=== PATIENT | female | born 1955 | race Caucasian/White ===

== ENCOUNTER 2018-04-19 21:17 | Emergency (ER) | payer BC, SELFPAY ==
[2018-04-19 21:24] VITALS: BP 130/73; PULSE 84; RESP 16; TEMP 36.7; O2SAT 98; BMI 23.6
--- NOTE | 2018-04-19 21:36 | ED_ITS ---
HPI - Female Genitourinary General Chief complaint: Urogenital-Female Stated complaint: LEFT SIDE PAIN KIDNEY STONES Time Seen by Provider: 04/19/18 21:36 Source: patient Mode of arrival: ambulatory Limitations: no limitations History of Present Illness HPI Narrative: 62-year-old female with a history of renal stones. She states that her 1st kidney stone 9 years ago required lithotripsy. Since then she states she has passed multiple kidney stones. She states that over the past couple days she has passed multiple stones. She has always had pain on her left side. Today she woke up with left-sided pain consistent with her prior stones. Did have nausea and vomiting this morning took some pain medication this morning but then threw it up. No fevers. Bowel changes. No vaginal bleeding Related Data Home Medications Medication Instructions Recorded Confirmed progesterone micronized 200 mg PO BID #0 02/14/17 04/19/18 acyclovir 1 tab PO DAILY 04/19/18 04/19/18 bupropion HCl 1 tab PO DAILY 04/19/18 04/19/18 estradiol 1 patch TRANSDERMAL WEEKLY 04/19/18 04/19/18 omeprazole 1 tab PO DAILY 04/19/18 04/19/18 progesterone micronized 1 tab PO DAILY 04/19/18 04/19/18 Allergies Allergy/AdvReac Type Severity Reaction Status Date / Time ondansetron [From Zofran] Allergy Severe Vomiting Verified 04/19/18 21:49 Review of Systems Constitutional Denies fever(s) Cardiovascular Denies chest pain and Denies dyspnea Respiratory Denies dyspnea Gastrointestinal Gastrointestinal: Denies abdominal pain, Denies change in stool character, Reports nausea and Reports vomiting Genitourinary Reports urinary frequency Integumentary/Breasts Denies lesions and Denies rash Hematologic/Lymphatic Denies easy bleeding and Denies easy bruising PFSH Medical History Kidney stone (Acute) Surgical History H/O lithotripsy (Acute) Social History Smoking Status: Never smoker Exam Initial Vital Signs Initial Vital Signs: Vital Signs Temperature 98.1 F 04/19/18 21:24 Pulse Rate 84 04/19/18 21:24 Respiratory Rate 16 04/19/18 21:24 Blood Pressure 130/73 04/19/18 21:24 Pulse Oximetry 98 04/19/18 21:24 Const General: cooperative, healthy appearing, comfortable, well developed, well groomed and No acute distress Orientation: alert, awake and oriented x3 Resp Effort & Inspection: normal respiratory effort Auscultation: clear to auscultation bilaterally Cardio Rate: regular rate Rhythm: regular rhythm GI Inspection: non-distended Palpation: soft, No firm and No tender Back/Spine/Pelvis Back: No CVA tenderness Skin Lesions: no lesions Rashes: no rashes Neuro General: alert, awake and oriented x3 Extrem General: normal to inspection and capillary refill normal Psych Appearance: grossly normal and well kempt Course Orders Ordered: ED Orders 04/19/18 21:35 Ictotest Urine Stat Urinalysis and Microscopic Stat Urine Culture Stat 04/19/18 22:15 Basic Metabolic Panel Stat Discontinued Medications Lidocaine HCl 5.6 ml/ Sodium (Chloride) 55.6 mls @ 333.6 mls/hr IV NOW ONE Stop: 04/19/18 21:57 Last Infusion: 04/19/18 22:54 Dose: 0 mls/hr Admin: 04/19/18 22:40 Dose: 333.6 mls/hr Sodium Chloride (Normal Saline 0.9%) 1,000 mls @ 1,000 mls/hr IV BOLUS ONE Stop: 04/19/18 22:55 Last Infusion: 04/19/18 23:06 Dose: 0 mls/hr Admin: 04/19/18 22:20 Dose: 1,000 mls/hr Ketorolac Tromethamine (Toradol) 30 mg IV NOW ONE Stop: 04/19/18 21:57 Last Admin: 04/19/18 22:20 Dose: 30 mg Vital Signs - 8 hr 04/19/18 21:24 04/19/18 22:22 Temperature 98.1 F Pulse Rate 84 77 Respiratory Rate 16 16 Blood Pressure 130/73 Blood Pressure [Left Arm] 148/77 H Pulse Oximetry 98 97 MDM - Female Genitourinary Lab Data Attestation: I reviewed the patient's lab results. Result diagrams: 04/19/18 22:15 Lab Results 04/19/18 04/19/18 Range/Units 21:35 22:15 Sodium 141 (137-145) mmol/L Potassium 4.0 (3.4-5.1) mmol/L Chloride 106 (98-107) mmol/L Carbon Dioxide 24 (22-32) mmol/L BUN 19 H (7-17) mg/dL Creatinine 1.00 (0.52-1.04) mg/dL Estimated GFR 56.6 L (>60) mL/min BUN/Creatinine Ratio 19.0 (6-22) Glucose 131 H (80-110) mg/dL Calcium 9.1 (8.4-10.2) mg/dL Urine Color Red Urine Appearance Cloudy Urine pH 5.0 (4.5-8.0) Ur Specific [place] 1.025 (1.000-1.035) Urine Protein 2+ H (Negative) Urine Glucose (UA) Negative (Normal) g/dL Urine Ketones 1+ H (NEGATIVE) Urine Occult Blood 3+ H (Negative) Urine Nitrate Negative (Negative) Urine Bilirubin 1+ H (NEGATIVE) Urine Ictotest Negative (Negative) Urine Urobilinogen 0.2 (0.2) E.U./dL Ur Leukocyte Esterase Trace H (NEGATIVE) Urine RBC >100/hpf H (0-5/HPF) Urine WBC 0-1/hpf (0-5/HPF) Ur Squamous Epith Cells 1-5 /hpf Urine Bacteria Moderate (10-30) H (None) Ur Culture Indicated? Specimen cultured Micro UA Comment Not Reportable MDM Narrative Medical decision making narrative: Patient's creatinine is unremarkable. No signs of infection in the urine. She has history and physical exam that are consistent with stones. She has a prior history of kidney stones. Will hold on a CT scan for now. She reports improvement of her pain after IV lidocaine and Toradol here in the ER. She has pain medication at home. Will send home with prescription for Phenergan. She was given return precautions. She expressed understanding and agreement with plan. Discharge Plan Departure Patient Disposition: Home Clinical Impression: Renal colic on left side Instructions: Kidney Stones -- Adult Activity Restrictions/Additional Instructions: Increase your fluid intake. Call your primary care doctor for a follow-up. Return to the emergency department for any new or worsening symptoms Prescriptions: No Action progesterone micronized 200 MG capsule 200 mg PO BID Qty: 0 RF: 0 bupropion HCl 150 mg tablet extended release 12 hr 1 tab PO DAILY RF: 0 acyclovir 200 mg capsule 1 tab PO DAILY RF: 0 omeprazole 20 mg capsule,delayed release(DR/EC) 1 tab PO DAILY RF: 0 progesterone micronized 100 mg capsule 1 tab PO DAILY RF: 0 estradiol 0.0375 mg/24 hr patch weekly 1 patch Transdermal WEEKLY RF: 0
[2018-04-19 22:10] LABS: Bilirubin Urine UA 1+ (NEGATIVE); Glucose Urine UA NEGATIVE (Normal); Ketones Urine UA 1+ (NEGATIVE); Leukocyte Esterase Urine UA TRACE (NEGATIVE); Nitrite Urine UA Negative (Negative); Occult Blood Urine UA 3+ (Negative); Protein Urine UA 2+ (Negative); Specific Gravity Urine UA 1.025 (1.000-1.035); Urobilinogen Urine UA 0.2 E.U./dL (0.2)
[2018-04-19 22:18] LABS: Appearance Urine UA Cloudy; Color Urine UA RED
[2018-04-19] MEDS: SODIUM CHLORIDE 0.9% 1,000 ML 1000 ML IV (22:20)
[2018-04-19] MEDS: KETOROLAC 60 MG/2 ML VIAL 30 MG IV (22:20)
[2018-04-19 22:22] VITALS: BP 148/77; PULSE 77; RESP 16; O2SAT 97
[2018-04-19 22:36] LABS: Culture Indicated Urine Specimen Cultured; RBC Urine >100/HPF (0-5/HPF); Squamous Epithelial Cell Urine 1-5 /HPF; WBC Urine 0-1/HPF (0-5/HPF)
[2018-04-19 22:37] LABS: Ictotest Urine Negative (Negative)
[2018-04-19 22:37] LABS: Blood Urea Nitrogen 19 mg/dL (7-17); Calcium 9.1 mg/dL (8.4-10.2); Carbon Dioxide 24 mmol/L (22-32); Chloride 106 mmol/L (98-107); Estimated Glomerular Filt Rate 56.6 mL/min (>60); Glucose 131 mg/dL (80-110); HEMOLYSIS < 15 (0-50); Sodium 141 mmol/L (137-145)
[2018-04-19] MEDS: LIDOCAINE 2% 5.6 ML in SODIUM CHLORIDE 0.9% 50 ML 333.6 ML IV (22:40)
[2018-04-19 22:58] LABS: Bacteria Urine Moderate (10-30)
[2018-04-19] MEDS: PROMETHAZINE 25 MG PREPACK 1 BOTTLE MISC (23:18)
[2018-04-19 23:25] VITALS: BP 135/73; PULSE 71; RESP 16; O2SAT 100
== END 2018-04-19 23:25 | disposition home or self-care (01) ==
PROVIDERS: Emergency Provider Emergency Medicine; Family Provider Nurse Practitioner Family; PCP Nurse Practitioner Family
DX: N23 Unspecified renal colic (principal)
CPT/HCPCS: 36591; 80048; 81001; 87086; 96361; 96374; 96375; 99283; 99284; J1885

== ENCOUNTER → 2018-05-19 16:42 | Outpatient (CLI) | payer BC, SELFPAY | PROVIDERS: Family Provider Nurse Practitioner Family; PCP Nurse Practitioner Family; Visit Provider Physician Assistant | DX: N30.91 Cystitis, unspecified with hematuria (principal) | CPT/HCPCS: 87086 ==

== ENCOUNTER 2018-06-06 13:12 | Emergency (ER) | payer BC, SELFPAY ==
[2018-06-06 13:19] VITALS: BP 138/76; PULSE 87; RESP 12; TEMP 36.8; O2SAT 100; BMI 23.6
--- NOTE | 2018-06-06 13:22 | DI.RAD.S_ITS ---
PROCEDURE: XR CHEST 1V INDICATIONS: chest pain TECHNIQUE: One view of the chest was acquired. COMPARISON: None. FINDINGS: Surgical changes and devices: None. Lungs and pleura: No pleural effusions or pneumothorax. Lungs are clear. Mediastinum: Mediastinal contours appear normal. Heart size is normal. Bones and chest wall: No suspicious bony lesions. Overlying soft tissues appear unremarkable. IMPRESSION: No acute cardiopulmonary pathology. Dictated by: Fahad Willis M.D. on 06/06/2018 at 14:18 Approved by: Fahad Willis M.D. on 06/06/2018 at 14:19
[2018-06-06 13:42] LABS: Add Manual Diff / Slide Review NO; Basophils Percent Auto 0.7 % (0-2); Eosinophils Percent Auto 1.2 % (2-4); Hematocrit 44.4 % (36-46); Hemoglobin 14.7 g/dL (12.0-16.0); Lymphocytes Percent Auto 23.4 % (25-40); Mean Corpuscular HGB Conc 33.1 % (30-36); Mean Corpuscular Hemoglobin 30.3 PG (26-34); Mean Corpuscular Volume 91.7 fL (80-100); Monocytes Percent Auto 6.4 % (3-14); Neutrophils Absolute Auto 3400 /uL (3000-5900); Neutrophils Percent Auto 68.3 % (50-75); Platelet Count 252 X10^3/uL (150-400); Red Blood Cell Count 4.84 X10^6/uL (4.0-5.2); Red Cell Distribution Width 12.8 % (11.6-14.8)
[2018-06-06 13:45] VITALS: BP 143/87; PULSE 74; RESP 15; O2SAT 97
[2018-06-06 13:50] LABS: Prothrombin Time 11.1 SECONDS (10.1-12.7)
--- NOTE | 2018-06-06 13:51 | ED.CHESTPAIN ---
HPI - Chest Pain General Chief Complaint: Chest Pain Stated Complaint: Chest pain, tingling down arm Time Seen by Provider: 06/06/18 13:23 Source: patient Mode of arrival: ambulatory Limitations: no limitations History of Present Illness HPI narrative: 62-year-old female, nonsmoker presents to the emergency department with significant other in the chief complaint of 4/10 chest pressure with radiation to her back and down both arms that started while at rest, but during a stressful moments this morning. The discomfort has no provocation or palliation and she has no history of the same. She denies risk factors for [place] such as hypertension, hyperlipidemia or smoking. She denies recent travel, history of clot, injury but does take exogenous estrogens. She denies any lower extremity pain or swelling. She states that over the past few weeks she has had a decrease in exercise tolerance as noted by increased fatigue while walking up the stairs at work, she now needs to grab the railing which is new. She denies associated symptoms such as dizziness, weakness or lightheadedness. She denies any shortness of breath or cough. MD complaint: chest pain Onset (ago): hour(s) Duration: constant Onset: during rest Pain location: substernal Severity: moderate Severity scale (1-10): 4 Quality: tightness and heaviness Pain radiation: RUE and LUE Relieving factors: nothing Exacerbating factors: nothing Treatments prior to arrival chest pain: none Related Data On Oral Contraceptives: No Home Medications Medication Instructions Recorded Confirmed acyclovir 1 tab PO DAILY 04/19/18 06/06/18 estradiol 1 patch TRANSDERMAL WEEKLY 04/19/18 06/06/18 omeprazole 1 tab PO DAILY 04/19/18 06/06/18 progesterone micronized 1 tab PO DAILY 04/19/18 06/06/18 bupropion HCl 150 mg PO BID 06/06/18 06/06/18 Previous Rx's Medication Instructions Recorded nitroglycerin 0.4 mg SL Q5-15M PRN #30 tab 06/06/18 Allergies Allergy/AdvReac Type Severity Reaction Status Date / Time ondansetron [From Zofran] Allergy Severe Vomiting Verified 06/06/18 13:19 Review of Systems Review of Systems All systems reviewed & are unremarkable except as noted in HPI and below Constitutional Denies chills, Denies fever(s), Denies lethargy and Denies weakness Eyes Denies change in vision, Denies eye discharge, Denies irritation and Denies loss of vision ENT Ears, Nose, Mouth, and Throat: Denies change in voice, Denies neck pain and Denies sore throat Cardiovascular Reports chest pain, Denies irregular heart rhythm, Denies lightheadedness, Denies palpitations, Denies dyspnea, Denies dyspnea on exertion and Denies orthopnea Respiratory Denies cough, Denies dyspnea, Denies dyspnea on exertion and Denies wheezing Gastrointestinal Gastrointestinal: Denies abdominal pain, Denies change in bowel habits, Denies diarrhea, Denies nausea and Denies vomiting Genitourinary Denies hematuria, Denies flank pain, Denies urinary incontinence and Denies urinary urgency Musculoskeletal Denies neck pain Integumentary/Breasts Denies pruritus, Denies erythema, Denies rash and Denies wounds Neurologic Denies confusion, Denies loss of vision and Denies weakness Psychiatric Denies anxiety, Denies confusion, Denies depression, Denies homicidal ideation and Denies suicidal ideation Endocrine Denies palpitations Hematologic/Lymphatic Denies easy bruising Allergic/Immunologic Denies wheezing [facility] Medical History Kidney stone (Acute) Surgical History H/O lithotripsy (Acute) Social History Smoking Status: Never smoker Exam Narrative Exam Narrative: GENERAL: This is a well-nourished, well-developed patient, in mild distress. HEAD: Atraumatic. Normocephalic. No temporal or scalp tenderness. EYES: Pupils equal round and reactive. Extraocular motions intact. No scleral icterus. No injection or drainage. ENT: Nose without bleeding, purulent drainage or septal hematoma. Throat without erythema, tonsillar hypertrophy or exudate. Uvula midline. Airway patent. NECK: Trachea midline. No JVD or lymphadenopathy. Supple, nontender, no meningeal signs. CARDIOVASCULAR: Regular rate and rhythm without murmurs, gallops, or rubs. RESPIRATORY: Clear to auscultation. Breath sounds equal bilaterally. No wheezes, rales, or rhonchi. GASTROINTESTINAL: Abdomen soft, non-tender, nondistended. No hepato-splenomegaly, or palpable masses. No guarding. EXTREMITIES: No clubbing, cyanosis, or edema. No joint tenderness, effusion, or edema noted. BACK: Nontender without deformity or crepitance. No flank tenderness. NEURO: AOx3. SKIN: No rash or erythema. Initial Vital Signs Initial Vital Signs: Vital Signs Temperature 98.2 F 06/06/18 13:19 Pulse Rate 87 06/06/18 13:19 Respiratory Rate 12 06/06/18 13:19 Blood Pressure 138/76 06/06/18 13:19 Pulse Oximetry 100 06/06/18 13:19 Course Orders Ordered: ED Orders 06/06/18 13:22 XR chest 1V Stat EKG-12 Lead Stat 06/06/18 13:34 Complete Blood Count AUTO DIFF Stat Comprehensive Metabolic Panel Stat D Dimer Stat Lipase Stat Partial Thromboplastin Time Stat Prothrombin Time INR Stat Troponin & CK Cardiac Panel Stat 06/06/18 14:34 EKG-12 Lead Stat Discontinued Medications Aspirin (Aspirin Chew) 324 mg PO NOW ONE Stop: 06/06/18 13:46 Last Admin: 06/06/18 13:59 Dose: 324 mg Nitroglycerin (Nitrostat) 0.4 mg SL [id number] PRN PRN Reason: Chest Pain Last Admin: 06/06/18 14:02 Dose: 0.4 mg Admin: 06/06/18 13:57 Dose: 0.4 mg Reevaluation(s) Reevaluation #1: patient has complete resolution of pain after nitro Consultations Consultation #1: Dr. Burnett has opening in office tomorrow at 0945, she can perform stress test in the office if needed Vital Signs - 8 hr 06/06/18 13:19 06/06/18 13:45 06/06/18 13:57 Temperature 98.2 F Pulse Rate 87 74 83 Respiratory Rate 12 15 Blood Pressure 138/76 143/87 H Blood Pressure [Left Arm] 143/87 H Pulse Oximetry 100 97 06/06/18 14:02 06/06/18 15:19 06/06/18 15:23 Temperature Pulse Rate 93 H 81 80 Respiratory Rate 17 20 Blood Pressure 135/76 118/83 Blood Pressure [Left Arm] 122/70 Pulse Oximetry 100 99 MDM - Chest Pain Differential Diagnosis Likely pneumothorax, unstable angina pectoris, atypical chest pain, st elevation myocardial infarction, costochondritis, chest pain and biliary colic Medical Records Data Attestation: I reviewed the patient's medical records. Lab Data Result diagrams: 06/06/18 13:34 06/06/18 13:34 Lab Results 06/06/18 06/06/18 06/06/18 Range/Units 13:34 13:34 13:34 WBC 5.0 (4.5-11.0) X10^3/uL RBC 4.84 (4.0-5.2) X10^6/uL Hgb 14.7 (12.0-16.0) g/dL Hct 44.4 (36-46) % MCV 91.7 (80-100) fL MCH 30.3 (26-34) PG MCHC 33.1 (30-36) % RDW 12.8 (11.6-14.8) % Plt Count 252 (150-400) X10^3/uL Neut % (Auto) 68.3 (50-75) % Lymph % (Auto) 23.4 L (25-40) % [place] % (Auto) 6.4 (3-14) % Eos % (Auto) 1.2 L (2-4) % Baso % (Auto) 0.7 (0-2) % Neut # (Auto) 3400 (9738-9052) /uL PT 11.1 (10.1-12.7) SECONDS INR 1.0 (0.9-1.3) APTT 29 (26.4-36.2) SECONDS D-Dimer < 200 (<230) ng/mL Sodium 144 (137-145) mmol/L Potassium 3.8 (3.4-5.1) mmol/L Chloride 106 (98-107) mmol/L Carbon Dioxide 24 (22-32) mmol/L BUN 14 (7-17) mg/dL Creatinine 0.80 (0.52-1.04) mg/dL Estimated GFR > 60.0 (>60) mL/min BUN/Creatinine Ratio 17.5 (6-22) Glucose 91 (80-110) mg/dL Calcium 9.1 (8.4-10.2) mg/dL Total Bilirubin 0.4 (0.2-1.3) mg/dL AST 21 (14-36) IU/L ALT 29 (9-52) IU/L Alkaline Phosphatase 70 (38-126) U/L Total Creatine Kinase 42 (30-135) U/L CK-MB (CK-2) TNP CK-MB (CK-2) Rel Index TNP Troponin I < 0.012 (0.01-0.034) ng/mL Total Protein 7.5 (6.3-8.2) g/dL Albumin 4.6 (3.5-5.0) g/dL Globulin 2.9 (1.7-4.1) g/dL Albumin/Globulin Ratio 1.6 (1.0-2.8) Lipase 57 (23-300) U/L ECG Data Attestation: I personally reviewed and interpreted this ECG as follows: Prior ECG tracings: not available for review Interpretation: EKG is normal sinus rhythm and free of any signs of ischemia or ectopy. MDM Narrative Medical decision making narrative: 62-year-old nonsmoking female presents with chest pain for the past 4 hr. She denies provocation or palliation nor many of the common associated cardiac equivalent symptoms. EKGs are unremarkable, troponin is normal, pain resolved with nitro. PE considered as a possible diagnosis, Phi Pearl's (UpToDate) PE out rhythm followed, patient had negative diameter in no Imaging deemed necessary. Patient has next day follow up. Discharge Plan Departure Patient Disposition: Home Clinical Impression: Chest pain Discharge Date/Time: 06/06/18 15:24 Interventions: ED Discharge Assessment Last Done: 06/06/18 15:23 Instructions: DI for Chest Pain Activity Restrictions/Additional Instructions: *You have been diagnosed with [ Acute Chest Pain ] *What to do: *Take medications as directed: your prescription has been electronically transmitted to the pharmacy at [facility] at your request *Follow up with Dr. Vane Burnett tomorrow at her [facility] office. Your appointment is at 945am, but please arrive early to fill out paperwork. *Return to ER if you should have any new, worsening or concerning symptoms, such as [chest pain, shortness of breath, or other bothersome symptoms ] Prescriptions: New nitroglycerin 0.4 mg tablet, sublingual 0.4 mg SL Q5-15M PRN (Reason: chest pain) Qty: 30 RF: 0 No Action acyclovir 200 mg capsule 1 tab PO DAILY RF: 0 omeprazole 20 mg capsule,delayed release(DR/EC) 1 tab PO DAILY RF: 0 progesterone micronized 100 mg capsule 1 tab PO DAILY RF: 0 estradiol 0.0375 mg/24 hr patch weekly 1 patch Transdermal WEEKLY RF: 0 bupropion HCl 150 mg tablet sustained-release 12 hr 150 mg PO BID RF: 0 Referrals: Vane Burnett MD [Physician] -
[2018-06-06 13:52] LABS: PTT Partial Thromboplastin Tim 29 SECONDS (26.4-36.2)
[2018-06-06 13:54] LABS: Alanine Aminotransferase 29 IU/L (9-52); Albumin 4.6 g/dL (3.5-5.0); Albumin Globulin Ratio 1.6 (1.0-2.8); Alkaline Phosphatase 70 U/L (38-126); Aspartate Aminotransferase 21 IU/L (14-36); BUN Creatinine Ratio 17.5 (6-22); Bilirubin Total 0.4 mg/dL (0.2-1.3); Blood Urea Nitrogen 14 mg/dL (7-17); Calcium 9.1 mg/dL (8.4-10.2); Carbon Dioxide 24 mmol/L (22-32); Chloride 106 mmol/L (98-107); Creatine Kinase 42 U/L (30-135); Estimated Glomerular Filt Rate > 60.0 mL/min (>60); Globulin 2.9 g/dL (1.7-4.1); Glucose 91 mg/dL (80-110); HEMOLYSIS 28 (0-50); Lipase 57 U/L (23-300); Potassium 3.8 mmol/L (3.4-5.1); Sodium 144 mmol/L (137-145); Total Protein 7.5 g/dL (6.3-8.2)
--- NOTE | 2018-06-06 13:55 | ED_ITS ---
HPI - Chest Pain General Chief Complaint: Chest Pain Stated Complaint: Chest pain, tingling down arm Time Seen by Provider: 06/06/18 13:23 Source: patient Mode of arrival: ambulatory Limitations: no limitations History of Present Illness HPI narrative: 62-year-old female, nonsmoker presents to the emergency department with significant other in the chief complaint of 4/10 chest pressure with radiation to her back and down both arms that started while at rest, but during a stressful moments this morning. The discomfort has no provocation or palliation and she has no history of the same. She denies risk factors for [place] such as hypertension, hyperlipidemia or smoking. She denies recent travel, history of clot, injury but does take exogenous estrogens. She denies any lower extremity pain or swelling. She states that over the past few weeks she has had a decrease in exercise tolerance as noted by increased fatigue while walking up the stairs at work, she now needs to grab the railing which is new. She denies associated symptoms such as dizziness, weakness or lightheadedness. She denies any shortness of breath or cough. MD complaint: chest pain Onset (ago): hour(s) Duration: constant Onset: during rest Pain location: substernal Severity: moderate Severity scale (1-10): 4 Quality: tightness and heaviness Pain radiation: RUE and LUE Relieving factors: nothing Exacerbating factors: nothing Treatments prior to arrival chest pain: none Related Data On Oral Contraceptives: No Home Medications Medication Instructions Recorded Confirmed acyclovir 1 tab PO DAILY 04/19/18 06/06/18 estradiol 1 patch TRANSDERMAL WEEKLY 04/19/18 06/06/18 omeprazole 1 tab PO DAILY 04/19/18 06/06/18 progesterone micronized 1 tab PO DAILY 04/19/18 06/06/18 bupropion HCl 150 mg PO BID 06/06/18 06/06/18 Previous Rx's Medication Instructions Recorded nitroglycerin 0.4 mg SL Q5-15M PRN #30 tab 06/06/18 Allergies Allergy/AdvReac Type Severity Reaction Status Date / Time ondansetron [From Zofran] Allergy Severe Vomiting Verified 06/06/18 13:19 Review of Systems Review of Systems All systems reviewed & are unremarkable except as noted in HPI and below Constitutional Denies chills, Denies fever(s), Denies lethargy and Denies weakness Eyes Denies change in vision, Denies eye discharge, Denies irritation and Denies loss of vision ENT Ears, Nose, Mouth, and Throat: Denies change in voice, Denies neck pain and Denies sore throat Cardiovascular Reports chest pain, Denies irregular heart rhythm, Denies lightheadedness, Denies palpitations, Denies dyspnea, Denies dyspnea on exertion and Denies orthopnea Respiratory Denies cough, Denies dyspnea, Denies dyspnea on exertion and Denies wheezing Gastrointestinal Gastrointestinal: Denies abdominal pain, Denies change in bowel habits, Denies diarrhea, Denies nausea and Denies vomiting Genitourinary Denies hematuria, Denies flank pain, Denies urinary incontinence and Denies urinary urgency Musculoskeletal Denies neck pain Integumentary/Breasts Denies pruritus, Denies erythema, Denies rash and Denies wounds Neurologic Denies confusion, Denies loss of vision and Denies weakness Psychiatric Denies anxiety, Denies confusion, Denies depression, Denies homicidal ideation and Denies suicidal ideation Endocrine Denies palpitations Hematologic/Lymphatic Denies easy bruising Allergic/Immunologic Denies wheezing FOR[facility]LY [facility] Medical History Kidney stone (Acute) Surgical History H/O lithotripsy (Acute) Social History Smoking Status: Never smoker Exam Narrative Exam Narrative: GENERAL: This is a well-nourished, well-developed patient, in mild distress. HEAD: Atraumatic. Normocephalic. No temporal or scalp tenderness. EYES: Pupils equal round and reactive. Extraocular motions intact. No scleral icterus. No injection or drainage. ENT: Nose without bleeding, purulent drainage or septal hematoma. Throat without erythema, tonsillar hypertrophy or exudate. Uvula midline. Airway patent. NECK: Trachea midline. No JVD or lymphadenopathy. Supple, nontender, no meningeal signs. CARDIOVASCULAR: Regular rate and rhythm without murmurs, gallops, or rubs. RESPIRATORY: Clear to auscultation. Breath sounds equal bilaterally. No wheezes , rales, or rhonchi. GASTROINTESTINAL: Abdomen soft, non-tender, nondistended. No hepato-splenomegaly , or palpable masses. No guarding. EXTREMITIES: No clubbing, cyanosis, or edema. No joint tenderness, effusion, or edema noted. BACK: Nontender without deformity or crepitance. No flank tenderness. NEURO: AOx3. SKIN: No rash or erythema. Initial Vital Signs Initial Vital Signs: Vital Signs Temperature 98.2 F 06/06/18 13:19 Pulse Rate 87 06/06/18 13:19 Respiratory Rate 12 06/06/18 13:19 Blood Pressure 138/76 06/06/18 13:19 Pulse Oximetry 100 06/06/18 13:19 Course Orders Ordered: ED Orders 06/06/18 13:22 XR chest 1V Stat EKG-12 Lead Stat 06/06/18 13:34 Complete Blood Count AUTO DIFF Stat Comprehensive Metabolic Panel Stat D Dimer Stat Lipase Stat Partial Thromboplastin Time Stat Prothrombin Time INR Stat Troponin & CK Cardiac Panel Stat 06/06/18 14:34 EKG-12 Lead Stat Discontinued Medications Aspirin (Aspirin Chew) 324 mg PO NOW ONE Stop: 06/06/18 13:46 Last Admin: 06/06/18 13:59 Dose: 324 mg Nitroglycerin (Nitrostat) 0.4 mg SL [id number] PRN PRN Reason: Chest Pain Last Admin: 06/06/18 14:02 Dose: 0.4 mg Admin: 06/06/18 13:57 Dose: 0.4 mg Reevaluation(s) Reevaluation #1: patient has complete resolution of pain after nitro Consultations Consultation #1: Dr. Burnett has opening in office tomorrow at 0945, she can perform stress test in the office if needed Vital Signs - 8 hr 06/06/18 13:19 06/06/18 13:45 06/06/18 13:57 Temperature 98.2 F Pulse Rate 87 74 83 Respiratory Rate 12 15 Blood Pressure 138/76 143/87 H Blood Pressure [Left Arm] 143/87 H Pulse Oximetry 100 97 06/06/18 14:02 06/06/18 15:19 06/06/18 15:23 Temperature Pulse Rate 93 H 81 80 Respiratory Rate 17 20 Blood Pressure 135/76 118/83 Blood Pressure [Left Arm] 122/70 Pulse Oximetry 100 99 MDM - Chest Pain Differential Diagnosis Likely pneumothorax, unstable angina pectoris, atypical chest pain, st elevation myocardial infarction, costochondritis, chest pain and biliary colic Medical Records Data Attestation: I reviewed the patient's medical records. Lab Data Result diagrams: 06/06/18 13:34 06/06/18 13:34 Lab Results 06/06/18 06/06/18 06/06/18 Range/Units 13:34 13:34 13:34 WBC 5.0 (4.5-11.0) X10^3/uL RBC 4.84 (4.0-5.2) X10^6/uL Hgb 14.7 (12.0-16.0) g/dL Hct 44.4 (36-46) % MCV 91.7 (80-100) fL MCH 30.3 (26-34) PG MCHC 33.1 (30-36) % RDW 12.8 (11.6-14.8) % Plt Count 252 (150-400) X10^3/uL Neut % (Auto) 68.3 (50-75) % Lymph % (Auto) 23.4 L (25-40) % Wilcox % (Auto) 6.4 (3-14) % Eos % (Auto) 1.2 L (2-4) % Baso % (Auto) 0.7 (0-2) % Neut # (Auto) 3400 (0250-5017) /uL PT 11.1 (10.1-12.7) SECONDS INR 1.0 (0.9-1.3) APTT 29 (26.4-36.2) SECONDS D-Dimer < 200 (<230) ng/mL Sodium 144 (137-145) mmol/L Potassium 3.8 (3.4-5.1) mmol/L Chloride 106 (98-107) mmol/L Carbon Dioxide 24 (22-32) mmol/L BUN 14 (7-17) mg/dL Creatinine 0.80 (0.52-1.04) mg/dL Estimated GFR > 60.0 (>60) mL/min BUN/Creatinine Ratio 17.5 (6-22) Glucose 91 (80-110) mg/dL Calcium 9.1 (8.4-10.2) mg/dL Total Bilirubin 0.4 (0.2-1.3) mg/dL AST 21 (14-36) IU/L ALT 29 (9-52) IU/L Alkaline Phosphatase 70 (38-126) U/L Total Creatine Kinase 42 (30-135) U/L CK-MB (CK-2) TNP CK-MB (CK-2) Rel Index TNP Troponin I < 0.012 (0.01-0.034) ng/mL Total Protein 7.5 (6.3-8.2) g/dL Albumin 4.6 (3.5-5.0) g/dL Globulin 2.9 (1.7-4.1) g/dL Albumin/Globulin Ratio 1.6 (1.0-2.8) Lipase 57 (23-300) U/L ECG Data Attestation: I personally reviewed and interpreted this ECG as follows: Prior ECG tracings: not available for review Interpretation: EKG is normal sinus rhythm and free of any signs of ischemia or ectopy. MDM Narrative Medical decision making narrative: 62-year-old nonsmoking female presents with chest pain for the past 4 hr. She denies provocation or palliation nor many of the common associated cardiac equivalent symptoms. EKGs are unremarkable, troponin is normal, pain resolved with nitro. PE considered as a possible diagnosis, Phi Pearl's (UpToDate) PE out rhythm followed, patient had negative diameter in no Imaging deemed necessary. Patient has next day follow up. Discharge Plan Departure Patient Disposition: Home Clinical Impression: Chest pain Discharge Date/Time: 06/06/18 15:24 Interventions: ED Discharge Assessment Last Done: 06/06/18 15:23 Instructions: DI for Chest Pain Activity Restrictions/Additional Instructions: *You have been diagnosed with [ Acute Chest Pain ] *What to do: *Take medications as directed: your prescription has been electronically transmitted to the pharmacy at [facility] [address] [address] [place] at your request *Follow up with Dr. Vane Burnett tomorrow at her [place] office. Your appointment is at 945am, but please arrive early to fill out paperwork. *Return to ER if you should have any new, worsening or concerning symptoms , such as [chest pain, shortness of breath, or other bothersome symptoms ] Prescriptions: New nitroglycerin 0.4 mg tablet, sublingual 0.4 mg SL Q5-15M PRN (Reason: chest pain) Qty: 30 RF: 0 No Action acyclovir 200 mg capsule 1 tab PO DAILY RF: 0 omeprazole 20 mg capsule,delayed release(DR/EC) 1 tab PO DAILY RF: 0 progesterone micronized 100 mg capsule 1 tab PO DAILY RF: 0 estradiol 0.0375 mg/24 hr patch weekly 1 patch Transdermal WEEKLY RF: 0 bupropion HCl 150 mg tablet sustained-release 12 hr 150 mg PO BID RF: 0 Referrals: Vane Burnett MD [Physician] -
[2018-06-06 13:57] VITALS: BP 143/87; PULSE 83
[2018-06-06] MEDS: NITROGLYCERIN 0.4 MG SL TAB SL ×2 (13:57→14:02)
[2018-06-06] MEDS: ASPIRIN 81 MG TAB 324 MG PO (13:59)
[2018-06-06 14:01] LABS: D Dimer < 200 ng/mL (<230)
[2018-06-06 14:02] VITALS: BP 135/76; PULSE 93
[2018-06-06 14:14] LABS: Troponin I < 0.012 ng/mL (0.01-0.034)
[2018-06-06 15:19] VITALS: BP 122/70; PULSE 81; RESP 17; O2SAT 100
[2018-06-06 15:23] VITALS: BP 118/83; PULSE 80; RESP 20; O2SAT 99
== END 2018-06-06 15:24 | disposition home or self-care (01) ==
PROVIDERS: Emergency Provider Emergency Medicine; Family Provider Nurse Practitioner Family; PCP Nurse Practitioner Family
DX: R07.89 Other chest pain (principal)
CPT/HCPCS: 36591; 71045; 80053; 82550; 83690; 84484; 85025; 85379; 85610; 85730; 93005; 93041; 99283; 99285

== ENCOUNTER → 2018-06-28 08:00 | Outpatient (CLI) | payer BC, SELFPAY ==
[2018-06-28 08:57] LABS: Cholesterol 204 mg/dL (140-199); HDL Cholesterol 48 mg/dL (40-60); LDL Cholesterol Calculated 137 mg/dL (<100); Triglycerides 95 mg/dL (35-150)
== END ==
PROVIDERS: PCP Internal Medicine; Visit Provider Internal Medicine
DX: R07.9 Chest pain, unspecified (principal)
CPT/HCPCS: 36415; 80061

== ENCOUNTER → 2018-10-15 15:24 | Outpatient (REF) | payer OTHER, SELFPAY ==
[2018-10-17 11:40] LABS: Specimen Source Kidney
== END ==
LOC: LAB 15:24
PROVIDERS: Family Provider Nurse Practitioner Family; PCP Internal Medicine; Visit Provider Internal Medicine
DX: N20.0 Calculus of kidney (principal)
CPT/HCPCS: 82370

== ENCOUNTER → 2018-11-29 12:56 | Outpatient (CLI) | payer OTHER, SELFPAY ==
--- NOTE | 2018-11-29 | DI.CT.S_ITS ---
PROCEDURE: CT KIDNEY URETER BLADDER (KUB) INDICATIONS: Calculus of kidney TECHNIQUE: Noncontrast 5 mm thick sections acquired from the diaphragms to the symphysis. 5 mm thick coronal and sagittal reformats were then performed. For radiation dose reduction, the following was used: automated exposure control, adjustment of mA and/or kV according to patient size. COMPARISON: None. FINDINGS: Image quality: Excellent. Lung bases: Lung bases are clear. Heart size is normal. Urinary system: Both kidneys are normal in size. No kidney stones. No right-sided hydronephrosis or perinephric fat stranding, but there is moderately severe left-sided hydronephrosis in this patient with several peripheral punctate calculi measuring approximately 1 mm in dimension, nonobstructive, at the collecting system of each kidney. Note is made of a far peripheral calcification within the lateral cortex of the left mid kidney, 5 mm. More inferiorly the ureter on the right appears normal but on the left appears distended to the junction of the ixzhir-[id number] thirds of the left ureter where an impacted 6 x 10 mm calculus can be seen, having an internal radiodensity about 2 640 Hounsfield units. The right ureter appears non-dilated throughout its expected course. Bladder wall thickness is normal; no calcified bladder stones. Other solid organs: Liver is normal in size. Gallbladder has been previously resected. Pancreas is normal in contours. Spleen is normal in size. No adrenal nodules. Peritoneum and bowel: Unenhanced bowel loops demonstrate normal wall thickness and caliber. No free fluid or air. Nodes and vessels: No retroperitoneal or mesenteric adenopathy by size criteria. Aorta and inferior vena cava are normal in caliber. Abdominal wall: No ventral hernias. Pelvis: No free pelvic fluid. No inguinal hernias or adenopathy. Bones: No suspicious bony lesions. No vertebral body compression fractures. IMPRESSION: Prior cholecystectomy, incidental mode is made of several punctate 1 mm calculi involving the nondistended collecting system of the right kidney. The left kidney is abnormally distended by moderately severe hydronephrosis and hydroureter extends from the left kidney to approximately the junction of the zjhkbp-vj-jpubir thirds of the left ureter where a 6 x 10 mm calculus is impacted. A stone of this large size frequently will not pass without urologic intervention. Urology consultation is anticipated. Through the abdomen and pelvis elsewhere no lesion is seen. Prior cholecystectomy. Dictated by: Yeyo Degroot M.D. on 11/29/2018 at 14:10 Approved by: Yeyo Degroot M.D. on 11/29/2018 at 14:14
== END ==
PROVIDERS: PCP Internal Medicine; Visit Provider Internal Medicine
DX: N13.2 Hydronephrosis with renal and ureteral calculous obstruction (principal); Z90.49 Acquired absence of other specified parts of digestive tract
CPT/HCPCS: 74176

== ENCOUNTER → 2019-01-14 16:07 | Outpatient (CLI) | payer OTHER, SELFPAY ==
--- NOTE | 2019-01-14 | DI.US.S_ITS ---
PROCEDURE: US RENAL COMPLETE INDICATIONS: CALCULUS OF KIDNEY TECHNIQUE: Real-time scanning was performed of the kidneys and bladder, with image documentation. COMPARISON: [facility], CT, CT KIDNEY URETER BLADDER (KUB), 11/29/2018, 13:01. FINDINGS: Kidneys: Kidneys are normal in size. Right kidney measures 11.6 cm long; left kidney measures 12 cm long. Right renal cortical thickness is 1.2 cm; left renal cortical thickness is 1.3 cm. Renal cortical echotexture is normal. Left-sided kidney stones are seen which measure up to 1 cm and up to 6 millimeters on this study. There is prominent left-sided hydronephrosis. A dilated left ureter is seen. Within the distal left ureter, there is a stone seen and measures 9 mm, at the ureterovesicular junction. No suspicious solid mass lesions. Bladder: Pre-void bladder volume is 524 mL. Post-void residual is 5 mL. Pre-void images demonstrate no intraluminal masses or stones. On pre-void images, only the right ureteral jet can be seen with color Doppler interrogation. (Of note, ureteral jets may not be detectable in up to 25% of cases due to insufficient differences in specific gravity between ureteral and bladder urine). Miscellaneous: No free pelvic fluid. IMPRESSION: There is a 9 mm obstructing stone seen within the distal left ureter, with associated severe left-sided hydronephrosis. Nonobstructing left-sided kidney stones are seen. (The known right kidney stone seen on the prior recent CT is not seen on this ultrasound.) Dictated by: Domingo Rojas M.D. on 01/15/2019 at 7:39 Approved by: Domingo Rojas M.D. on 01/15/2019 at 7:42
== END ==
PROVIDERS: PCP Internal Medicine; Visit Provider Urology
DX: N13.2 Hydronephrosis with renal and ureteral calculous obstruction (principal)
CPT/HCPCS: 76770

== ENCOUNTER 2019-08-10 17:54 | Emergency (ER) | payer OTHER, SELFPAY ==
--- NOTE | 2019-08-10 18:03 | ED_ITS ---
HPI - Eye Problem General Chief complaint: Eye Problems Stated complaint: lt eye/ blurry/ black spots/ flashes of light Time Seen by Provider: 08/10/19 18:02 Source: patient Mode of arrival: Ambulatory Limitations: no limitations History of Present Illness HPI Narrative: 63-year-old female nonsmoker with history of GERD and cataract surgery a few months ago presents with the chief complaint of some flashing light sensation in her left eye as well as some dark spots or floaters. She denies any injury nor eye pain. She does not wear contacts. She has had no drainage. She denies other neurologic symptoms such as numbness, tingling or weakness. She denies any visual field cuts MD chief complaint: vision change Onset (ago): day(s) Onset description: unknown Duration: intermittent Location: left eye Severity: mild Associated symptoms: none Related Data Patient tetanus UTD: Yes Home Medications Medication Instructions Recorded Confirmed acyclovir 1 tab PO DAILY 04/19/18 06/06/18 estradiol 1 patch TRANSDERMAL WEEKLY 04/19/18 06/06/18 omeprazole 1 tab PO DAILY 04/19/18 06/06/18 progesterone micronized 1 tab PO DAILY 04/19/18 06/06/18 bupropion HCl 150 mg PO BID 06/06/18 06/06/18 Previous Rx's Medication Instructions Recorded nitroglycerin 0.4 mg SL Q5-15M PRN #30 tab 06/06/18 Allergies Allergy/AdvReac Type Severity Reaction Status Date / Time ondansetron [From Zofran] Allergy Severe Vomiting Verified 06/06/18 13:19 Review of Systems Constitutional Constitutional: Denies chills, Denies fatigue, Denies fever(s), Denies frequent falls, Denies lethargy and Denies weakness Eyes Eyes: Denies change in vision, Denies eye discharge, Reports floaters, Denies irritation and Denies loss of vision ENT Ears, Nose, Mouth, and Throat: Denies change in voice, Denies dizziness, Denies neck pain, Denies sore throat and Denies throat swelling Cardiovascular Cardiovascular: Denies chest pain, Denies irregular heart rhythm, Denies lightheadedness, Denies palpitations, Denies dyspnea, Denies dyspnea on exertion and Denies orthopnea Respiratory Respiratory: Denies cough, Denies dyspnea, Denies dyspnea on exertion and Denies wheezing Gastrointestinal Gastrointestinal: Denies abdominal pain, Denies change in bowel habits, Denies diarrhea, Denies nausea and Denies vomiting Genitourinary Genitourinary: Denies hematuria, Denies flank pain, Denies urinary incontinence and Denies urinary urgency Musculoskeletal Musculoskeletal: Denies back pain, Denies muscle weakness, Denies neck pain, Denies numbness and Denies tingling Integumentary/Breasts Skin/Breast: Denies pruritus, Denies erythema, Denies rash and Denies wounds Neurologic Neurologic: Denies behavioral changes, Denies confusion, Denies dizziness, Denies frequent falls, Denies loss of vision, Denies numbness, Denies tingling and Denies weakness Psychiatric Psychiatric: Denies anxiety, Denies behavioral changes, Denies confusion, Denies depression, Denies homicidal ideation and Denies suicidal ideation Endocrine Endocrine: Denies fatigue, Denies flushing and Denies palpitations Hematologic/Lymphatic Hematologic/Lymphatic: Denies easy bruising Allergic/Immunologic Allergic/Immunologic: Denies urticaria, Denies throat swelling and Denies wheezing Patient History Medical History Kidney stone (Acute) Surgical History H/O lithotripsy (Acute) Social History Smoking Status: Never smoker Smoking Status: Never smoker alcohol intake frequency: other Substance Use Type: does not use Exam Narrative Exam Narrative: GENERAL: [63] year old patient appears stated age. Well- nourished, well-developed patient, in mild distress. HEAD: Atraumatic. Normocephalic. EYES: Pupils equal round and reactive. Extraocular motions intact. No scleral icterus. No injection or drainage. OS pressure 19. NO abnormal fundoscopic findings. No dye uptake under UV. No US findings suggestive of increased ICP or Retinal detachment ENT: Nose without bleeding, purulent drainage. Throat without erythema, tonsillar hypertrophy or exudate. Airway patent. NECK: Trachea midline. Non tender CARDIOVASCULAR: Regular rate and rhythm without murmurs, gallops, or rubs. RESPIRATORY: Clear to auscultation. Breath sounds equal bilaterally. No wheezes, rales, or rhonchi. GASTROINTESTINAL: Abdomen soft, non-tender, nondistended. EXTREMITIES: No edema or joint tenderness. BACK: Nontender without deformity or crepitance. No flank tenderness. NEURO: AOx3. SKIN: No rash or erythema of visible areas Initial Vital Signs Initial Vital Signs: Vital Signs Temperature 98.1 F 08/10/19 18:06 Pulse Rate 93 H 08/10/19 18:06 Respiratory Rate 16 08/10/19 18:06 Blood Pressure 159/79 H 08/10/19 18:06 Pulse Oximetry 99 08/10/19 18:06 Course Orders Ordered: Discontinued Medications Fluorescein Sodium (Ful-Maria Guadalupe) 1 mg EYE-LEFT NOW ONE Stop: 08/10/19 18:43 Last Admin: 08/10/19 18:45 Dose: 1 mg Documented by: SCANAPO Proparacaine HCl (Parcaine 0.5% Ophth Mariana) 1 drops EYE-LEFT NOW ONE Stop: 08/10/19 18:22 Last Admin: 08/10/19 18:44 Dose: 4 drop Documented by: SCANAPO Vital Signs Vital signs: Vital Signs - 8 hr 08/10/19 18:06 08/10/19 19:09 Temperature 98.1 F Pulse Rate 93 H 89 Respiratory Rate 16 18 Blood Pressure 159/79 H 140/81 Pulse Oximetry 99 99 MDM - Eye Problem MDM Narrative Medical decision making narrative: Multiple etiologies considered including retinal detachment, vitreous hemorrhage. Exam and history are reassuring for safe DC and close follow up. She has been given return precautions and has had questions answered to her apparent satisfaction. Discharge Plan Departure Patient Disposition: Home Clinical Impression: Floaters in visual field Qualifiers: Laterality: left Qualified Code(s): H43.392 - Other vitreous opacities, left eye Discharge Date/Time: 08/10/19 19:10 Instructions: DI for Eye Floaters Activity Restrictions/Additional Instructions: *You have been diagnosed with [left eye floaters and flashers] *What to do: * continue to take medications as directed *Follow up with your pharmacist apprentice tomorrow, call for an appointment. Let them know you were seen in the Emergency Department and that we ask that you be seen in follow up. Our local Ophthalmologists will also be happy to see you if you cannot get in with your doctor. Contact info is below. *Return to ER if you should have any new, worsening or concerning symptoms Prescriptions: No Action acyclovir 200 mg capsule 1 tab PO DAILY RF: 0 omeprazole 20 mg capsule,delayed release(DR/EC) 1 tab PO DAILY RF: 0 progesterone micronized 100 mg capsule 1 tab PO DAILY RF: 0 estradiol 0.0375 mg/24 hr patch weekly 1 patch Transdermal WEEKLY RF: 0 bupropion HCl 150 mg tablet sustained-release 12 hr 150 mg PO BID RF: 0 nitroglycerin 0.4 mg tablet, sublingual 0.4 mg SL Q5-15M PRN (Reason: chest pain) Qty: 30 RF: 0 Referrals: Jesica Gibbons MD [Physician] - Vane Burnett MD [Primary Care Provider] -
[2019-08-10 18:06] VITALS: BP 159/79; PULSE 93; RESP 16; TEMP 36.7; O2SAT 99; BMI 24.3
[2019-08-10] MEDS: PROPARACAINE 0.5% OPHTH SOL 1 DROPS EYE-LEFT (18:44)
[2019-08-10] MEDS: FLUORESCEIN 1 MG STRIP EYE-LEFT (18:45)
--- NOTE | 2019-08-10 19:08 | PC.NURSE ---
Dr. Duncan performed various eye exams on patient.
[2019-08-10 19:09] VITALS: BP 140/81; PULSE 89; RESP 18; O2SAT 99
== END 2019-08-10 19:10 | disposition home or self-care (01) ==
PROVIDERS: Emergency Provider Emergency Medicine; PCP Internal Medicine
DX: H43.392 Other vitreous opacities, left eye (principal); H53.8 Other visual disturbances
CPT/HCPCS: 99281; 99282

== ENCOUNTER → 2020-06-10 15:25 | Outpatient (CLI) | payer OTHER, SELFPAY ==
--- NOTE | 2020-06-10 | DI.CT.S_ITS ---
PROCEDURE: CT KIDNEY URETER BLADDER (KUB) INDICATIONS: Hematuria, unspecified TECHNIQUE: Noncontrast 5 mm thick sections acquired from the diaphragms to the symphysis. 5 mm thick coronal and sagittal reformats were then performed. For radiation dose reduction, the following was used: automated exposure control, adjustment of mA and/or kV according to patient size. COMPARISON: [facility], CT, CT KIDNEY URETER BLADDER (KUB), 11/29/2018, 13:01. FINDINGS: Image quality: Excellent. Lung bases: Lung bases are clear. Heart size is normal. Urinary system: Right kidney: Moderate hydronephrosis. There are 2 very tiny, subtle nonobstructing right renal stones. Right ureter: Moderately dilated to the level of the distal ureter, where there is a obstructing stone measuring 6.9 mm. Left kidney: Multiple small nonobstructing stones. Previous hydronephrosis has resolved. Left ureter: Previous ureteral stone is no longer present. Ureters unremarkable. Bladder: Completely decompressed. No bladder stone. Other solid organs: Liver is normal in size. Gallbladder is surgically absent . Pancreas is normal in contours. Spleen is normal in size. No adrenal nodules. Peritoneum and bowel: Unenhanced bowel loops demonstrate normal wall thickness and caliber. No free fluid or air. Nodes and vessels: No retroperitoneal or mesenteric adenopathy by size criteria. Aorta and inferior vena cava are normal in caliber. Abdominal wall: No ventral hernias. Pelvis: No free pelvic fluid. No inguinal hernias or adenopathy. Bones: No suspicious bony lesions. No vertebral body compression fractures. IMPRESSION: 1. A 6 x 9 mm stone obstructs the distal right ureter resulting in moderate right hydroureter and hydronephrosis. 2. Bilateral nonobstructing renal calcifications, left greater than right. Dictated by: Salas Casillas M.D. on 06/10/2020 at 15:55 Approved by: Salas Casillas M.D. on 06/10/2020 at 16:03
== END ==
PROVIDERS: PCP Internal Medicine; Referring Provider Internal Medicine; Visit Provider Internal Medicine
DX: R31.9 Hematuria, unspecified (principal); N13.2 Hydronephrosis with renal and ureteral calculous obstruction; R39.9 Unspecified symptoms and signs involving the genitourinary system
CPT/HCPCS: 74176; 87086

== ENCOUNTER → 2020-06-10 18:51 | Outpatient (ROUT) | payer OTHER, SELFPAY | PROVIDERS: PCP Internal Medicine; Visit Provider Internal Medicine | DX: R39.9 Unspecified symptoms and signs involving the genitourinary system (principal) | CPT/HCPCS: 87086 ==

== ENCOUNTER → 2022-06-01 15:43 | Outpatient (CLI) | payer OTHER, SELFPAY ==
--- NOTE | 2022-06-01 15:47 | DI.RAD.S_ITS ---
PROCEDURE: XR CHEST 2V INDICATIONS: COUGH TECHNIQUE: 2 views of the chest were acquired. COMPARISON: [facility], CR, XR CHEST 1V, 06/06/2018, 13:29. FINDINGS: Surgical changes and devices: None. Lungs and pleura: Lungs are clear. No pleural effusions or pneumothorax. Mediastinum: Mediastinal contours are normal. Heart size is normal. Bones and chest wall: No suspicious bony abnormalities. Soft tissues appear unremarkable. IMPRESSION: No acute cardiopulmonary pathology. Dictated by: Fahad Willis M.D. on 06/01/2022 at 16:44 Approved by: Fahad Willis M.D. on 06/01/2022 at 16:44
== END ==
PROVIDERS: Referring Provider Internal Medicine; Visit Provider Internal Medicine
DX: R05.3 Chronic cough (principal)
CPT/HCPCS: 71046